=== PATIENT | male | born 2000 | race American Indian/Alaskan Native ===

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

== ENCOUNTER 2024-08-26 15:12 | Emergency (ER) | payer SELFPAY ==
[2024-08-26 16:08] LABS: BASOPHILS PERCENT AUTO 0.1 % (0.3-3.8); EOSINOPHILS ABSOLUTE AUTO 0.1 x10-3/uL (0.0-0.6); EOSINOPHILS PERCENT AUTO 0.8 % (0.1-6.8); HEMATOCRIT 47.3 % (38.3-50.1); HEMOGLOBIN 16.3 g/dL (12.9-17.7); LYMPHOCYTES ABSOLUTE AUTO 0.9 x10-3/uL (0.5-4.5); LYMPHOCYTES PERCENT AUTO 15.7 % (15.8-45.3); MEAN CORPUSCULAR HGB CONC 34.5 g/dL (28.7-35.3); MEAN CORPUSCULAR VOLUME 95.6 fL (80.8-98.7); MEAN PLATELET VOLUME 8.1 fL (6.7-11.0); MONOCYTES ABSOLUTE AUTO 0.3 x10-3/uL (0.0-1.2); MONOCYTES PERCENT AUTO 5.1 % (5.5-15.2); NEUTROPHILS ABSOLUTE AUTO 4.7 x10-3/uL (1.7-6.9); NEUTROPHILS PERCENT AUTO 78.3 % (40.3-71.8); PLATELET COUNT,PLT 243 x10(3)uL (117-477); RED BLOOD CELL COUNT 4.95 x10(6)uL (3.90-5.90); RED CELL DISTRIBUTION WIDTH 13.6 % (12.4-15.0); WHITE BLOOD CELL COUNT,WBC 5.9 x10-3/uL (3.2-10.1)
[2024-08-26 16:15] LABS: BLOOD UREA NITROGEN,BUN 5 mg/dL (7-18); BUN/CREATININE RATIO 5.6 (9-20); CALCIUM 8.6 mg/dL (8.6-10.2); CARBON DIOXIDE,CO2 24 mmol/L (21-32); CHLORIDE,CL 101 mmol/L (100-110); CREATININE 0.9 mg/dL (0.70-1.30); ESTIMATED GFR 122 mL/min (>60); GLUCOSE RANDOM 82 mg/dL (80-116); POTASSIUM,K 4.2 mmol/L (3.5-5.3); SODIUM,NA 140 mmol/L (135-145)
[2024-08-26 16:18] LABS: SALICYLATE 1.8 mg/dL (<2.8)
[2024-08-26 16:19] LABS: ACETAMINOPHEN < 2 ug/mL (<2)
[2024-08-26 16:26] LABS: A/G RATIO 1.1; ALBUMIN 4.4 g/dL (3.5-5.2); ALKALINE PHOSPHATASE 138 IU/L (56-112); BILIRUBIN TOTAL 0.7 mg/dL (0.1-1.3); PROTEIN TOTAL,TP 8.4 g/dL (6.0-8.0)
[2024-08-26 16:28] LABS: ALANINE AMINOTRANSFERASE,ALT 304 U/L (12-36); ASPARTATE AMNIOTRANSFERASE,AST 401 IU/L (5-25); ETHANOL BLOOD MEDICAL 0.34 % (<0.03)
[2024-08-26 16:29] LABS: LACTIC ACID 3.6 mmol/L (0.4-2.0)
[2024-08-26 16:46] LABS: BILIRUBIN,URINE NEGATIVE (NEGATIVE); GLUCOSE,URINE NORMAL (NORMAL); KETONES,URINE 15 mg/dL (NEGATIVE); LEUKOCYTE ESTERASE,URINE NEGATIVE (NEGATIVE); NITRITE,URINE NEGATIVE (NEGATIVE); OCCULT BLOOD,URINE NEGATIVE (NEGATIVE); PROTEIN,URINE 30 mg/dL (NEGATIVE); UROBILINOGEN,URINE NORMAL (NEGATIVE)
[2024-08-26 16:47] LABS: APPEARANCE,URINE CLEAR (CLEAR); COLOR,URINE YELLOW (YELLOW)
[2024-08-26 16:53] LABS: AMPHETAMINES SCREEN, URINE NEGATIVE (NEGATIVE); BARBITURATE SCREEN,URINE NEGATIVE (NEGATIVE); BENZODIAZEPINES SCREEN,URINE NEGATIVE (NEGATIVE); METHADONE SCREEN, URINE NEGATIVE (NEGATIVE); METHAMPHETAMINE SCREEN, URINE NEGATIVE (NEGATIVE); OXYCODONE SCREEN,URINE NEGATIVE (NEGATIVE); THC SCREEN,URINE POSITIVE (NEGATIVE)
[2024-08-26] MEDS: Sodium Chloride 0.9% 1,000 ML IV ONE ×3 (16:53→20:04)
[2024-08-26 16:54] LABS: BUPRENORPHINE SCREEN,URINE NEGATIVE (NEGATIVE)
[2024-08-26 17:18] LABS: BACTERIA,URINE OCCASIONAL (NS); FINE GRANULAR CASTS,URINE OCCASIONAL (NS); MUCUS,URINE FEW (NS); RBC,URINE 0-5 (0-5); SQUAMOUS EPITHELIAL CELLS,UR OCCASIONAL (NS,R,O); WBC,URINE 0-5 (0-5)
[2024-08-26] MEDS: LORazepam 2 MG/ML SDV IVPUSH ONE (20:04)
== END 2024-08-26 21:00 ==
LOC: FB.ED 15:12
DX: F10.239 Alcohol dependence with withdrawal, unspecified (principal); F17.290 Nicotine dependence, other tobacco product, uncomplicated; Y90.9 Presence of alcohol in blood, level not specified
CPT/HCPCS: 36415; 80053; 80143; 80179; 80307; 81001; 83605; 83690; 85025; 96361; 96374; 99284; 99285; J2060; J7030

== ENCOUNTER 2024-09-15 08:12 | Emergency (ER) | payer SELFPAY ==
[2024-09-15] MEDS ORDERED: Sodium Chloride 0.9% 10 ML Syringe FLUSH PRN (08:22)
[2024-09-15] MEDS: Thiamine 200 MG/2 ML MDV IVPUSH STA (08:48)
[2024-09-15] MEDS: Sodium Chloride 0.9% 1,000 ML IV SCH (08:48)
[2024-09-15 08:49] LABS: BASOPHILS PERCENT AUTO 0.5 % (0.3-3.8); EOSINOPHILS PERCENT AUTO 0.4 % (0.1-6.8); HEMATOCRIT 47.7 % (38.3-50.1); HEMOGLOBIN 16.7 g/dL (12.9-17.7); MEAN CORPUSCULAR HEMOGLOBIN 32.1 pg (27.0-33.3); MEAN CORPUSCULAR HGB CONC 35.1 g/dL (28.7-35.3); MEAN CORPUSCULAR VOLUME 91.5 fL (80.8-98.7); MONOCYTES ABSOLUTE AUTO 0.8 x10-3/uL (0.0-1.2); MONOCYTES PERCENT AUTO 8.4 % (5.5-15.2); NEUTROPHILS ABSOLUTE AUTO 6.1 x10-3/uL (1.7-6.9); NEUTROPHILS PERCENT AUTO 68.7 % (40.3-71.8); PLATELET COUNT,PLT 479 x10(3)uL (117-477); RED BLOOD CELL COUNT 5.21 x10(6)uL (3.90-5.90); RED CELL DISTRIBUTION WIDTH 13.5 % (12.4-15.0); WHITE BLOOD CELL COUNT,WBC 8.9 x10-3/uL (3.2-10.1)
[2024-09-15 08:53] LABS: EST CRCL DRUG DOSING (CG) 123.85 mL/min; ESTIMATED GFR 127 mL/min (>60); POTASSIUM,K 3.2 mmol/L (3.5-5.3)
[2024-09-15 09:04] LABS: A/G RATIO 0.9; ALBUMIN 3.9 g/dL (3.5-5.2); BILIRUBIN TOTAL 0.4 mg/dL (0.1-1.3); MAGNESIUM 1.9 mg/dL (1.8-2.5)
[2024-09-15 09:16] LABS: CALCIUM 9.4 mg/dL (8.6-10.2); CARBON DIOXIDE,CO2 26 mmol/L (21-32); CHLORIDE,CL 100 mmol/L (100-110); CREATININE 0.8 mg/dL (0.70-1.30); GLUCOSE RANDOM 101 mg/dL (80-116); SODIUM,NA 143 mmol/L (135-145)
[2024-09-15 09:27] LABS: ALKALINE PHOSPHATASE 137 IU/L (56-112); ASPARTATE AMNIOTRANSFERASE,AST 95 IU/L (5-25); PROTEIN TOTAL,TP 8.4 g/dL (6.0-8.0)
[2024-09-15 09:31] LABS: BLOOD UREA NITROGEN,BUN < 5 mg/dL (7-18); BUN/CREATININE RATIO 6.3 (9-20)
[2024-09-15 09:32] LABS: ALANINE AMINOTRANSFERASE,ALT 151 U/L (12-36)
[2024-09-15 09:33] LABS: AMPHETAMINES SCREEN, URINE NEGATIVE (NEGATIVE); BARBITURATE SCREEN,URINE NEGATIVE (NEGATIVE); BENZODIAZEPINES SCREEN,URINE NEGATIVE (NEGATIVE); BUPRENORPHINE SCREEN,URINE NEGATIVE (NEGATIVE); METHADONE SCREEN, URINE NEGATIVE (NEGATIVE); METHAMPHETAMINE SCREEN, URINE NEGATIVE (NEGATIVE); OXYCODONE SCREEN,URINE NEGATIVE (NEGATIVE); THC SCREEN,URINE NEGATIVE (NEGATIVE)
[2024-09-15] MEDS: Potassium Chloride 20 MEQ Tab.ER PO STA (09:42)
== END 2024-09-15 09:45 | disposition home or self-care (01) ==
LOC: FB.ED 08:12
DX: F10.120 Alcohol abuse with intoxication, uncomplicated (principal); E87.6 Hypokalemia; Z79.899 Other long term (current) drug therapy; Y90.0 Blood alcohol level of less than 20 mg/100 ml
CPT/HCPCS: 71045; 80053; 80307; 83735; 85025; 93005; 93010; 96361; 96374; 99284; 99285; A9270; J3411; J7030

== ENCOUNTER 2024-09-16 21:32 | Emergency (ER) | payer SELFPAY ==
[2024-09-16] MEDS: LORazepam 2 MG/ML SDV IM ONE (22:12)
[2024-09-16 22:18] LABS: BASOPHILS PERCENT AUTO 0.4 % (0.3-3.8); EOSINOPHILS PERCENT AUTO 0.2 % (0.1-6.8); HEMATOCRIT 45.3 % (38.3-50.1); HEMOGLOBIN 15.7 g/dL (12.9-17.7); LYMPHOCYTES PERCENT AUTO 8.5 % (15.8-45.3); MEAN CORPUSCULAR HEMOGLOBIN 32.1 pg (27.0-33.3); MEAN CORPUSCULAR HGB CONC 34.7 g/dL (28.7-35.3); MEAN CORPUSCULAR VOLUME 92.3 fL (80.8-98.7); MEAN PLATELET VOLUME 8.3 fL (6.7-11.0); MONOCYTES ABSOLUTE AUTO 0.7 x10-3/uL (0.0-1.2); MONOCYTES PERCENT AUTO 5.9 % (5.5-15.2); NEUTROPHILS ABSOLUTE AUTO 9.6 x10-3/uL (1.7-6.9); PLATELET COUNT,PLT 382 x10(3)uL (117-477); RED BLOOD CELL COUNT 4.91 x10(6)uL (3.90-5.90); RED CELL DISTRIBUTION WIDTH 13.7 % (12.4-15.0); WHITE BLOOD CELL COUNT,WBC 11.2 x10-3/uL (3.2-10.1)
[2024-09-16 22:22] LABS: CALCIUM 9.5 mg/dL (8.6-10.2); CARBON DIOXIDE,CO2 28 mmol/L (21-32); CHLORIDE,CL 97 mmol/L (100-110); CREATININE 0.9 mg/dL (0.70-1.30); ESTIMATED GFR 122 mL/min (>60); GLUCOSE RANDOM 106 mg/dL (80-116); POTASSIUM,K 3.9 mmol/L (3.5-5.3); SODIUM,NA 138 mmol/L (135-145)
[2024-09-16 22:27] LABS: A/G RATIO 0.9; ALANINE AMINOTRANSFERASE,ALT 142 U/L (12-36); ALBUMIN 3.8 g/dL (3.5-5.2); ALKALINE PHOSPHATASE 124 IU/L (56-112); ASPARTATE AMNIOTRANSFERASE,AST 91 IU/L (5-25); BILIRUBIN TOTAL 0.7 mg/dL (0.1-1.3); PROTEIN TOTAL,TP 7.9 g/dL (6.0-8.0)
[2024-09-16 22:28] LABS: BLOOD UREA NITROGEN,BUN < 5 mg/dL (7-18); BUN/CREATININE RATIO 5.6 (9-20)
[2024-09-16 22:42] LABS: AMPHETAMINES SCREEN, URINE NEGATIVE (NEGATIVE); BARBITURATE SCREEN,URINE NEGATIVE (NEGATIVE); BENZODIAZEPINES SCREEN,URINE NEGATIVE (NEGATIVE); BUPRENORPHINE SCREEN,URINE NEGATIVE (NEGATIVE); METHADONE SCREEN, URINE NEGATIVE (NEGATIVE); METHAMPHETAMINE SCREEN, URINE NEGATIVE (NEGATIVE); OXYCODONE SCREEN,URINE NEGATIVE (NEGATIVE); THC SCREEN,URINE POSITIVE (NEGATIVE)
== END 2024-09-16 23:09 | disposition home or self-care (01) ==
LOC: FB.ED 21:32
DX: F10.10 Alcohol abuse, uncomplicated (principal); F41.9 Anxiety disorder, unspecified; Z79.899 Other long term (current) drug therapy; Y90.9 Presence of alcohol in blood, level not specified
CPT/HCPCS: 36415; 80053; 80307; 84484; 85025; 93005; 93010; 96372; 99284; 99285; J2060

== ENCOUNTER 2024-10-06 16:23 | Emergency (ER) | payer SELFPAY ==
[2024-10-06] MEDS ORDERED: Sodium Chloride 0.9% 10 ML Syringe FLUSH PRN (16:48)
[2024-10-06] MEDS: Sodium Chloride 0.9% 1,000 ML IV ONE (17:08)
[2024-10-06] MEDS: diphenhydrAMINE 50 MG/ML SDV IVPUSH ONE (17:10)
[2024-10-06] MEDS: Prochlorperazine 10 MG/2 ML SDV IVPUSH ONE (17:10)
[2024-10-06 17:15] LABS: BASOPHILS PERCENT AUTO 0.1 % (0.3-3.8); EOSINOPHILS PERCENT AUTO 0.1 % (0.1-6.8); HEMATOCRIT 47.5 % (38.3-50.1); HEMOGLOBIN 16.9 g/dL (12.9-17.7); LYMPHOCYTES ABSOLUTE AUTO 0.5 x10-3/uL (0.5-4.5); LYMPHOCYTES PERCENT AUTO 5.3 % (15.8-45.3); MEAN CORPUSCULAR HEMOGLOBIN 32.3 pg (27.0-33.3); MEAN CORPUSCULAR HGB CONC 35.7 g/dL (28.7-35.3); MEAN CORPUSCULAR VOLUME 90.5 fL (80.8-98.7); MEAN PLATELET VOLUME 10.4 fL (6.7-11.0); MONOCYTES ABSOLUTE AUTO 0.9 x10-3/uL (0.0-1.2); MONOCYTES PERCENT AUTO 10.1 % (5.5-15.2); NEUTROPHILS ABSOLUTE AUTO 7.6 x10-3/uL (1.7-6.9); NEUTROPHILS PERCENT AUTO 84.4 % (40.3-71.8); PLATELET COUNT,PLT 155 x10(3)uL (117-477); RED BLOOD CELL COUNT 5.24 x10(6)uL (3.90-5.90); RED CELL DISTRIBUTION WIDTH 13.9 % (12.4-15.0)
[2024-10-06 17:25] LABS: BILIRUBIN,URINE SMALL (NEGATIVE); GLUCOSE,URINE NORMAL (NORMAL); KETONES,URINE 15 mg/dL (NEGATIVE); LEUKOCYTE ESTERASE,URINE NEGATIVE (NEGATIVE); NITRITE,URINE NEGATIVE (NEGATIVE); OCCULT BLOOD,URINE NEGATIVE (NEGATIVE); PROTEIN,URINE NEGATIVE (NEGATIVE); UROBILINOGEN,URINE NORMAL (NEGATIVE)
[2024-10-06 17:26] LABS: APPEARANCE,URINE SLIGHTLY CLOUDY (CLEAR); COLOR,URINE ORANGE (YELLOW)
[2024-10-06 17:30] LABS: A/G RATIO 1.1; ALANINE AMINOTRANSFERASE,ALT 100 U/L (12-36); ALBUMIN 4.9 g/dL (3.5-5.2); ALKALINE PHOSPHATASE 144 IU/L (56-112); ASPARTATE AMNIOTRANSFERASE,AST 133 IU/L (5-25); BILIRUBIN TOTAL 2.3 mg/dL (0.1-1.3); BLOOD UREA NITROGEN,BUN 77 mg/dL (7-18); BUN/CREATININE RATIO 29.6 (9-20); CALCIUM 9.7 mg/dL (8.6-10.2); CARBON DIOXIDE,CO2 27 mmol/L (21-32); ESTIMATED GFR 34 mL/min (>60); GLUCOSE RANDOM 103 mg/dL (80-116); MAGNESIUM 2.7 mg/dL (1.8-2.5); POTASSIUM,K 3.2 mmol/L (3.5-5.3); PROTEIN TOTAL,TP 9.3 g/dL (6.0-8.0); SODIUM,NA 123 mmol/L (135-145)
[2024-10-06 17:34] LABS: CHLORIDE,CL 79 mmol/L (100-110)
[2024-10-06 17:36] LABS: CREATININE 2.6 mg/dL (0.70-1.30)
[2024-10-06 17:39] LABS: AMPHETAMINES SCREEN, URINE NEGATIVE (NEGATIVE); BARBITURATE SCREEN,URINE NEGATIVE (NEGATIVE); BENZODIAZEPINES SCREEN,URINE NEGATIVE (NEGATIVE); BUPRENORPHINE SCREEN,URINE NEGATIVE (NEGATIVE); METHADONE SCREEN, URINE NEGATIVE (NEGATIVE); METHAMPHETAMINE SCREEN, URINE NEGATIVE (NEGATIVE); OXYCODONE SCREEN,URINE NEGATIVE (NEGATIVE); THC SCREEN,URINE NEGATIVE (NEGATIVE)
[2024-10-06] MEDS: LORazepam 2 MG/ML SDV IVPUSH ONE (18:09)
[2024-10-06] MEDS: Sodium Chloride 0.9% 1,000 ML IV SCH (18:11)
[2024-10-06] MEDS: LORazepam 2 MG/ML SDV ONE (18:18)
[2024-10-06] MEDS: diazePAM 10 MG/2 ML Syringe IVPUSH ONE (18:26)
[2024-10-06 19:05] LABS: INR 1.01 (1.00-1.24); PROTHROMBIN TIME 10.5 sec (9.0-11.1); PTT,PARTIAL THROMBOPLSTIN TIME 24.6 SECONDS (24.4-33.2)
== END 2024-10-06 20:15 ==
LOC: FB.ED 16:23
DX: F10.231 Alcohol dependence with withdrawal delirium (principal); K70.9 Alcoholic liver disease, unspecified; N17.9 Acute kidney failure, unspecified; E87.1 Hypo-osmolality and hyponatremia; E87.6 Hypokalemia; Z79.899 Other long term (current) drug therapy; Y90.0 Blood alcohol level of less than 20 mg/100 ml
CPT/HCPCS: 36415; 80053; 80143; 80307; 81003; 83605; 83735; 85025; 85610; 85730; 96361; 96374; 96375; 99285; J0780; J1200; J2060; J3360; J7030

== ENCOUNTER 2024-11-03 22:08 | Emergency (ER) | payer SELFPAY ==
[2024-11-03] MEDS ORDERED: Sodium Chloride 0.9% 10 ML Syringe FLUSH PRN (22:21)
[2024-11-03] MEDS: Sodium Chloride 0.9% 1,000 ML IV SCH (22:40)
[2024-11-03 22:41] LABS: BASOPHILS PERCENT AUTO 0.5 % (0.3-3.8); EOSINOPHILS PERCENT AUTO 0.2 % (0.1-6.8); HEMATOCRIT 48.4 % (38.3-50.1); HEMOGLOBIN 16.8 g/dL (12.9-17.7); LYMPHOCYTES ABSOLUTE AUTO 1.6 x10-3/uL (0.5-4.5); LYMPHOCYTES PERCENT AUTO 19.3 % (15.8-45.3); MEAN CORPUSCULAR HEMOGLOBIN 30.4 pg (27.0-33.3); MEAN CORPUSCULAR HGB CONC 34.8 g/dL (28.7-35.3); MEAN CORPUSCULAR VOLUME 87.5 fL (80.8-98.7); MEAN PLATELET VOLUME 9.7 fL (6.7-11.0); MONOCYTES ABSOLUTE AUTO 0.6 x10-3/uL (0.0-1.2); MONOCYTES PERCENT AUTO 6.8 % (5.5-15.2); NEUTROPHILS PERCENT AUTO 73.2 % (40.3-71.8); PLATELET COUNT,PLT 155 x10(3)uL (117-477); RED BLOOD CELL COUNT 5.52 x10(6)uL (3.90-5.90); RED CELL DISTRIBUTION WIDTH 13.7 % (12.4-15.0); WHITE BLOOD CELL COUNT,WBC 8.2 x10-3/uL (3.2-10.1)
[2024-11-03] MEDS: Thiamine 200 MG/2 ML MDV IVPUSH ONE (22:47)
[2024-11-03 22:48] LABS: BLOOD UREA NITROGEN,BUN 9 mg/dL (7-18); CARBON DIOXIDE,CO2 27 mmol/L (21-32); CHLORIDE,CL 96 mmol/L (100-110); ESTIMATED GFR 108 mL/min (>60); GLUCOSE RANDOM 109 mg/dL (80-116); POTASSIUM,K 3.1 mmol/L (3.5-5.3); SODIUM,NA 139 mmol/L (135-145)
[2024-11-03 22:59] LABS: A/G RATIO 1.1; ALANINE AMINOTRANSFERASE,ALT 111 U/L (12-36); ALBUMIN 4.4 g/dL (3.5-5.2); ALKALINE PHOSPHATASE 136 IU/L (56-112); BILIRUBIN TOTAL 0.7 mg/dL (0.1-1.3); PROTEIN TOTAL,TP 8.4 g/dL (6.0-8.0); SALICYLATE 1.9 mg/dL (<2.8)
[2024-11-03 23:00] LABS: ASPARTATE AMNIOTRANSFERASE,AST 279 IU/L (5-25)
[2024-11-03 23:03] LABS: ACETAMINOPHEN < 2 ug/mL (<2)
[2024-11-03] MEDS: LORazepam 2 MG/ML SDV IVPUSH PRN (23:27)
[2024-11-04 00:21] LABS: AMPHETAMINES SCREEN, URINE NEGATIVE (NEGATIVE); BARBITURATE SCREEN,URINE NEGATIVE (NEGATIVE); BENZODIAZEPINES SCREEN,URINE NEGATIVE (NEGATIVE); BUPRENORPHINE SCREEN,URINE NEGATIVE (NEGATIVE); METHADONE SCREEN, URINE NEGATIVE (NEGATIVE); METHAMPHETAMINE SCREEN, URINE NEGATIVE (NEGATIVE); OXYCODONE SCREEN,URINE NEGATIVE (NEGATIVE); THC SCREEN,URINE NEGATIVE (NEGATIVE)
[2024-11-04] MEDS: Promethazine 12.5 MG in Sodium Chloride 0.9% 50 ML IV PRN (00:23)
[2024-11-04] MEDS: Potassium Chloride 20 MEQ Tab.ER PO ONE (01:37)
== END 2024-11-04 01:45 ==
LOC: FB.ED 22:08
DX: R78.0 Finding of alcohol in blood (principal); Z79.899 Other long term (current) drug therapy; Y90.0 Blood alcohol level of less than 20 mg/100 ml
CPT/HCPCS: 36415; 80053; 80143; 80179; 80307; 85025; 96361; 96374; 96375; 99285; 99285-25; A9270-GY; J2060; J2550; J3411; J7030

== ENCOUNTER 2024-12-11 22:30 | Emergency (ER) | payer SELFPAY ==
[2024-12-11 22:59] LABS: BASOPHILS ABSOLUTE AUTO 0.0 x10-3/uL (0.0-0.3); BASOPHILS PERCENT AUTO 0.5 % (0.3-3.8); EOSINOPHILS ABSOLUTE AUTO 0.0 x10-3/uL (0.0-0.6); EOSINOPHILS PERCENT AUTO 0.1 % (0.1-6.8); LYMPHOCYTES ABSOLUTE AUTO 1.4 x10-3/uL (0.5-4.5); LYMPHOCYTES PERCENT AUTO 15.4 % (15.8-45.3); MEAN PLATELET VOLUME 8.8 fL (6.7-11.0); MONOCYTES ABSOLUTE AUTO 0.4 x10-3/uL (0.0-1.2); MONOCYTES PERCENT AUTO 4.2 % (5.5-15.2); NEUTROPHILS ABSOLUTE AUTO 7.2 x10-3/uL (1.7-6.9); NEUTROPHILS PERCENT AUTO 79.8 % (40.3-71.8); PLATELET COUNT,PLT 236 x10(3)uL (117-477); RED BLOOD CELL COUNT 5.03 x10(6)uL (3.90-5.90); RED CELL DISTRIBUTION WIDTH 14.7 % (12.4-15.0); WHITE BLOOD CELL COUNT,WBC 9.0 x10-3/uL (3.2-10.1)
[2024-12-11 23:03] LABS: BLOOD UREA NITROGEN,BUN 8 mg/dL (7-18); CARBON DIOXIDE,CO2 24 mmol/L (21-32); CHLORIDE,CL 103 mmol/L (100-110); CREATININE 0.9 mg/dL (0.70-1.30); ESTIMATED GFR 122 mL/min (>60); GLUCOSE RANDOM 151 mg/dL (80-116); POTASSIUM,K 3.1 mmol/L (3.5-5.3); SODIUM,NA 141 mmol/L (135-145)
[2024-12-11 23:15] LABS: A/G RATIO 1.2; ALANINE AMINOTRANSFERASE,ALT 79 U/L (12-36); ASPARTATE AMNIOTRANSFERASE,AST 69 IU/L (5-25); BILIRUBIN TOTAL 0.5 mg/dL (0.1-1.3); PROTEIN TOTAL,TP 7.8 g/dL (6.0-8.0)
[2024-12-11 23:19] LABS: LACTIC ACID 3.2 mmol/L (0.4-2.0)
[2024-12-12 05:13] LABS: LACTIC ACID 4.1 mmol/L (0.4-2.0)
[2024-12-12] MEDS: Potassium Chloride 20 MEQ Tab.ER PO ONE (05:55)
[2024-12-12 10:00] LABS: AMPHETAMINES SCREEN, URINE NEGATIVE (NEGATIVE); BUPRENORPHINE SCREEN,URINE NEGATIVE (NEGATIVE); METHADONE SCREEN, URINE NEGATIVE (NEGATIVE); METHAMPHETAMINE SCREEN, URINE NEGATIVE (NEGATIVE); OXYCODONE SCREEN,URINE NEGATIVE (NEGATIVE)
== END 2024-12-12 10:00 | disposition home or self-care (01) ==
LOC: FB.ED 22:30
DX: F10.120 Alcohol abuse with intoxication, uncomplicated (principal); E87.6 Hypokalemia; Z79.899 Other long term (current) drug therapy; Y90.0 Blood alcohol level of less than 20 mg/100 ml
CPT/HCPCS: 36415; 80053; 80307; 82947; 83605; 85025; 96360; 96361; 99285; A9270; J7030

== ENCOUNTER 2024-12-12 12:56 | Emergency (ER) | payer SELFPAY ==
[2024-12-12] MEDS ORDERED: Sodium Chloride 0.9% 10 ML Syringe FLUSH PRN (13:07)
[2024-12-12 14:32] LABS: BASOPHILS ABSOLUTE AUTO 0.0 x10-3/uL (0.0-0.3); BASOPHILS PERCENT AUTO 0.4 % (0.3-3.8); EOSINOPHILS ABSOLUTE AUTO 0.0 x10-3/uL (0.0-0.6); EOSINOPHILS PERCENT AUTO 0.1 % (0.1-6.8); LYMPHOCYTES ABSOLUTE AUTO 1.8 x10-3/uL (0.5-4.5); LYMPHOCYTES PERCENT AUTO 20.6 % (15.8-45.3); MEAN PLATELET VOLUME 8.6 fL (6.7-11.0); MONOCYTES ABSOLUTE AUTO 0.5 x10-3/uL (0.0-1.2); MONOCYTES PERCENT AUTO 6.1 % (5.5-15.2); NEUTROPHILS ABSOLUTE AUTO 6.3 x10-3/uL (1.7-6.9); NEUTROPHILS PERCENT AUTO 72.8 % (40.3-71.8); PLATELET COUNT,PLT 225 x10(3)uL (117-477); RED BLOOD CELL COUNT 4.86 x10(6)uL (3.90-5.90); RED CELL DISTRIBUTION WIDTH 14.4 % (12.4-15.0); WHITE BLOOD CELL COUNT,WBC 8.6 x10-3/uL (3.2-10.1)
[2024-12-12 14:36] LABS: BLOOD UREA NITROGEN,BUN 6 mg/dL (7-18); CARBON DIOXIDE,CO2 25 mmol/L (21-32); CHLORIDE,CL 107 mmol/L (100-110); CREATININE 0.9 mg/dL (0.70-1.30); ESTIMATED GFR 122 mL/min (>60); GLUCOSE RANDOM 94 mg/dL (80-116); POTASSIUM,K 3.4 mmol/L (3.5-5.3); SODIUM,NA 146 mmol/L (135-145)
[2024-12-12 14:42] LABS: A/G RATIO 1.2; ALANINE AMINOTRANSFERASE,ALT 68 U/L (12-36); ASPARTATE AMNIOTRANSFERASE,AST 56 IU/L (5-25); BILIRUBIN TOTAL 0.6 mg/dL (0.1-1.3); PROTEIN TOTAL,TP 7.6 g/dL (6.0-8.0)
[2024-12-12] MEDS: Potassium Chloride 20 MEQ Tab.ER PO ONE (18:04)
== END 2024-12-12 18:42 ==
LOC: FB.ED 12:56
DX: S00.83XA Contusion of other part of head, initial encounter (principal); F10.129 Alcohol abuse with intoxication, unspecified; E87.6 Hypokalemia; Z79.899 Other long term (current) drug therapy; Y90.8 Blood alcohol level of 240 mg/100 ml or more; V18.2XXA Unspecified pedal cyclist injured in noncollision transport accident in nontraffic accident, initial encounter
CPT/HCPCS: 70450; 80053; 80307; 84443; 85025; 86140; 96360; 96361; 99285; A9270; J7030

== ENCOUNTER 2025-01-01 04:35 | Emergency (ER) | payer SELFPAY ==
[2025-01-01 05:08] LABS: BASOPHILS ABSOLUTE AUTO 0.1 x10-3/uL (0.0-0.3); BASOPHILS PERCENT AUTO 0.7 % (0.3-3.8); EOSINOPHILS ABSOLUTE AUTO 0.0 x10-3/uL (0.0-0.6); EOSINOPHILS PERCENT AUTO 0.1 % (0.1-6.8); LYMPHOCYTES ABSOLUTE AUTO 1.2 x10-3/uL (0.5-4.5); LYMPHOCYTES PERCENT AUTO 15.7 % (15.8-45.3); MEAN PLATELET VOLUME 8.8 fL (6.7-11.0); MONOCYTES ABSOLUTE AUTO 0.6 x10-3/uL (0.0-1.2); MONOCYTES PERCENT AUTO 7.5 % (5.5-15.2); NEUTROPHILS ABSOLUTE AUTO 5.7 x10-3/uL (1.7-6.9); NEUTROPHILS PERCENT AUTO 76.0 % (40.3-71.8); PLATELET COUNT,PLT 308 x10(3)uL (117-477); RED BLOOD CELL COUNT 4.78 x10(6)uL (3.90-5.90); RED CELL DISTRIBUTION WIDTH 15.0 % (12.4-15.0); WHITE BLOOD CELL COUNT,WBC 7.5 x10-3/uL (3.2-10.1)
[2025-01-01] MEDS: Ondansetron 4 MG/2 ML SDV IVPUSH ONE (05:13)
[2025-01-01] MEDS: Sodium Chloride 0.9% 10 ML Syringe FLUSH PRN (05:13)
[2025-01-01 05:23] LABS: A/G RATIO 1.3; ALANINE AMINOTRANSFERASE,ALT 33 U/L (12-36); ASPARTATE AMNIOTRANSFERASE,AST 35 IU/L (5-25); BILIRUBIN TOTAL 3.1 mg/dL (0.1-1.3); BLOOD UREA NITROGEN,BUN 14 mg/dL (7-18); CARBON DIOXIDE,CO2 18 mmol/L (21-32); CHLORIDE,CL 93 mmol/L (100-110); CREATININE 1.5 mg/dL (0.70-1.30); EST CRCL DRUG DOSING (CG) 80.18 mL/min; ESTIMATED GFR 66 mL/min (>60); GLUCOSE RANDOM 90 mg/dL (80-116); PROTEIN TOTAL,TP 7.9 g/dL (6.0-8.0); SODIUM,NA 137 mmol/L (135-145)
[2025-01-01 05:41] LABS: POTASSIUM,K 2.5 mmol/L (3.5-5.3)
[2025-01-01] MEDS: LORazepam 2 MG/ML SDV IVPUSH ONE (06:02)
[2025-01-01] MEDS: Magnesium Sulfate 2 GM/50 mL 2 GM in Premix Bag 1 BAG IV ONE (06:03)
[2025-01-01] MEDS: Potassium Chloride 20 MEQ in Premix Bag 1 BAG IV ONE (06:07)
[2025-01-01 06:38] LABS: GLUCOSE,URINE NORMAL (NORMAL); OCCULT BLOOD,URINE NEGATIVE (NEGATIVE)
[2025-01-01 06:47] LABS: APPEARANCE,URINE CLEAR (CLEAR); SQUAMOUS EPITHELIAL CELLS,UR FEW (NS,R,O)
[2025-01-01 06:52] LABS: AMPHETAMINES SCREEN, URINE NEGATIVE (NEGATIVE); BUPRENORPHINE SCREEN,URINE NEGATIVE (NEGATIVE); METHADONE SCREEN, URINE NEGATIVE (NEGATIVE); METHAMPHETAMINE SCREEN, URINE NEGATIVE (NEGATIVE); OXYCODONE SCREEN,URINE NEGATIVE (NEGATIVE)
[2025-01-01] MEDS: Lactated Ringers 1,000 ML IV ONE (07:05)
[2025-01-01] MEDS: Potassium Chloride 20 MEQ Tab.ER PO ONE (07:18)
[2025-01-01 09:02] LABS: POTASSIUM,K 3.6 mmol/L (3.5-5.3)
== END 2025-01-01 10:30 | disposition home or self-care (01) ==
LOC: FB.ED 04:35
DX: F10.239 Alcohol dependence with withdrawal, unspecified (principal); E87.6 Hypokalemia; E83.42 Hypomagnesemia; E86.0 Dehydration; E78.00 Pure hypercholesterolemia, unspecified; Z79.899 Other long term (current) drug therapy; Z87.891 Personal history of nicotine dependence; Y90.0 Blood alcohol level of less than 20 mg/100 ml
CPT/HCPCS: 36415; 80053; 80307; 81001; 83605; 83690; 83735; 84132; 85025; 96361; 96365; 96367; 96375; 99285; A9270; J2060; J2405; J3475; J3480; J7030; J7120

== ENCOUNTER 2025-02-01 17:08 | Emergency (ER) | payer SELFPAY ==
[2025-02-01 17:39] LABS: MEAN PLATELET VOLUME 8.9 fL (6.7-11.0); PLATELET COUNT,PLT 216 x10(3)uL (117-477); RED BLOOD CELL COUNT 4.88 x10(6)uL (3.90-5.90); RED CELL DISTRIBUTION WIDTH 14.7 % (12.4-15.0); WHITE BLOOD CELL COUNT,WBC 11.7 x10-3/uL (3.2-10.1)
[2025-02-01 17:43] LABS: BLOOD UREA NITROGEN,BUN 20 mg/dL (7-18); CARBON DIOXIDE,CO2 17 mmol/L (21-32); CHLORIDE,CL 97 mmol/L (100-110); CREATININE 1.1 mg/dL (0.70-1.30); ESTIMATED GFR 96 mL/min (>60); GLUCOSE RANDOM 80 mg/dL (80-116); POTASSIUM,K 3.9 mmol/L (3.5-5.3); SODIUM,NA 134 mmol/L (135-145)
[2025-02-01 17:45] LABS: INR 0.98 (1.00-1.24)
[2025-02-01 17:48] LABS: A/G RATIO 1.2; ALANINE AMINOTRANSFERASE,ALT 105 U/L (12-36); ASPARTATE AMNIOTRANSFERASE,AST 94 IU/L (5-25); BILIRUBIN TOTAL 0.7 mg/dL (0.1-1.3); PROTEIN TOTAL,TP 7.5 g/dL (6.0-8.0)
[2025-02-01 17:54] LABS: LYMPHOCYTES PERCENT MAN 8 % (13-37); MONOCYTES PERCENT MAN 1 % (4-12); SEG NEUTROPHILS PERCENT MAN 91 % (46-82)
[2025-02-01 18:35] LABS: AMPHETAMINES SCREEN, URINE NEGATIVE (NEGATIVE); METHADONE SCREEN, URINE NEGATIVE (NEGATIVE); METHAMPHETAMINE SCREEN, URINE NEGATIVE (NEGATIVE); OXYCODONE SCREEN,URINE NEGATIVE (NEGATIVE)
[2025-02-01 18:36] LABS: BUPRENORPHINE SCREEN,URINE NEGATIVE (NEGATIVE)
== END 2025-02-01 18:55 | disposition home or self-care (01) ==
LOC: FB.ED 17:08
DX: F10.939 Alcohol use, unspecified with withdrawal, unspecified (principal); Z79.899 Other long term (current) drug therapy; Y90.0 Blood alcohol level of less than 20 mg/100 ml
CPT/HCPCS: 36415; 80053; 80307; 83690; 83735; 85025; 85610; 96360; 99284; 99285; J7030

== ENCOUNTER 2025-04-13 18:31 | Emergency (ER) | payer SELFPAY ==
[2025-04-13] MEDS ORDERED: Sodium Chloride 0.9% 10 ML Syringe FLUSH PRN (18:43)
[2025-04-13] MEDS: LORazepam 2 MG/ML SDV IVPUSH ONE (19:02)
[2025-04-13 19:04] LABS: BASOPHILS ABSOLUTE AUTO 0.1 x10-3/uL (0.0-0.3); BASOPHILS PERCENT AUTO 0.5 % (0.3-3.8); EOSINOPHILS ABSOLUTE AUTO 0.0 x10-3/uL (0.0-0.6); EOSINOPHILS PERCENT AUTO 0.0 % (0.1-6.8); LYMPHOCYTES ABSOLUTE AUTO 1.5 x10-3/uL (0.5-4.5); LYMPHOCYTES PERCENT AUTO 15.4 % (15.8-45.3); MEAN PLATELET VOLUME 8.3 fL (6.7-11.0); MONOCYTES ABSOLUTE AUTO 0.3 x10-3/uL (0.0-1.2); MONOCYTES PERCENT AUTO 3.1 % (5.5-15.2); NEUTROPHILS ABSOLUTE AUTO 8.0 x10-3/uL (1.7-6.9); NEUTROPHILS PERCENT AUTO 81.0 % (40.3-71.8); PLATELET COUNT,PLT 300 x10(3)uL (117-477); RED BLOOD CELL COUNT 5.44 x10(6)uL (3.90-5.90); RED CELL DISTRIBUTION WIDTH 14.2 % (12.4-15.0); WHITE BLOOD CELL COUNT,WBC 9.9 x10-3/uL (3.2-10.1)
[2025-04-13 19:05] LABS: BLOOD UREA NITROGEN,BUN 13 mg/dL (7-18); CARBON DIOXIDE,CO2 23 mmol/L (21-32); CHLORIDE,CL 100 mmol/L (100-110); CREATININE 1.1 mg/dL (0.70-1.30); ESTIMATED GFR 96 mL/min (>60); GLUCOSE RANDOM 93 mg/dL (80-116); POTASSIUM,K 3.8 mmol/L (3.5-5.3); SODIUM,NA 141 mmol/L (135-145)
[2025-04-13 19:11] LABS: A/G RATIO 1.2; ALANINE AMINOTRANSFERASE,ALT 28 U/L (12-36); ASPARTATE AMNIOTRANSFERASE,AST 26 IU/L (5-25); BILIRUBIN TOTAL 0.9 mg/dL (0.1-1.3); PROTEIN TOTAL,TP 8.5 g/dL (6.0-8.0)
== END 2025-04-13 20:00 | disposition home or self-care (01) ==
LOC: FB.ED 18:31
DX: F41.9 Anxiety disorder, unspecified (principal); Z79.899 Other long term (current) drug therapy
CPT/HCPCS: 80053; 80307; 85025; 96361; 96374; 99285; J2060; J7030

== ENCOUNTER 2025-04-16 02:07 | Emergency (ER) | payer SELFPAY ==
[2025-04-16] MEDS ORDERED: Sodium Chloride 0.9% 10 ML Syringe FLUSH PRN (02:47)
[2025-04-16 03:01] LABS: BASOPHILS ABSOLUTE AUTO 0.0 x10-3/uL (0.0-0.3); BASOPHILS PERCENT AUTO 0.4 % (0.3-3.8); EOSINOPHILS ABSOLUTE AUTO 0.0 x10-3/uL (0.0-0.6); EOSINOPHILS PERCENT AUTO 0.4 % (0.1-6.8); LYMPHOCYTES ABSOLUTE AUTO 4.3 x10-3/uL (0.5-4.5); LYMPHOCYTES PERCENT AUTO 46.6 % (15.8-45.3); MEAN PLATELET VOLUME 8.5 fL (6.7-11.0); MONOCYTES ABSOLUTE AUTO 0.7 x10-3/uL (0.0-1.2); MONOCYTES PERCENT AUTO 8.1 % (5.5-15.2); NEUTROPHILS ABSOLUTE AUTO 4.1 x10-3/uL (1.7-6.9); NEUTROPHILS PERCENT AUTO 44.5 % (40.3-71.8); PLATELET COUNT,PLT 282 x10(3)uL (117-477); RED BLOOD CELL COUNT 5.27 x10(6)uL (3.90-5.90); RED CELL DISTRIBUTION WIDTH 13.8 % (12.4-15.0); WHITE BLOOD CELL COUNT,WBC 9.2 x10-3/uL (3.2-10.1)
[2025-04-16 03:11] LABS: BLOOD UREA NITROGEN,BUN 8 mg/dL (7-18); CARBON DIOXIDE,CO2 23 mmol/L (21-32); CHLORIDE,CL 103 mmol/L (100-110); CREATININE 1.0 mg/dL (0.70-1.30); EST CRCL DRUG DOSING (CG) 120.27 mL/min; ESTIMATED GFR 107 mL/min (>60); GLUCOSE RANDOM 103 mg/dL (80-116); POTASSIUM,K 3.0 mmol/L (3.5-5.3); SODIUM,NA 142 mmol/L (135-145)
[2025-04-16] MEDS: Thiamine 200 MG/2 ML MDV IVPUSH ONE (03:12)
[2025-04-16 03:17] LABS: A/G RATIO 1.2; ALANINE AMINOTRANSFERASE,ALT 36 U/L (12-36); ASPARTATE AMNIOTRANSFERASE,AST 58 IU/L (5-25); BILIRUBIN TOTAL 0.5 mg/dL (0.1-1.3); PROTEIN TOTAL,TP 8.2 g/dL (6.0-8.0)
[2025-04-16 03:21] LABS: ETHANOL BLOOD MEDICAL 0.44 % (<0.03)
[2025-04-16 03:31] LABS: AMPHETAMINES SCREEN, URINE NEGATIVE (NEGATIVE); METHADONE SCREEN, URINE NEGATIVE (NEGATIVE); METHAMPHETAMINE SCREEN, URINE NEGATIVE (NEGATIVE); OXYCODONE SCREEN,URINE NEGATIVE (NEGATIVE)
[2025-04-16 03:32] LABS: BUPRENORPHINE SCREEN,URINE NEGATIVE (NEGATIVE)
[2025-04-16] MEDS: Potassium Chloride 20 MEQ Tab.ER PO ONE (03:39)
[2025-04-16] MEDS: Prochlorperazine 10 MG/2 ML SDV IVPUSH ONE (03:40)
[2025-04-17 20:42] LABS: THYROXINE FREE 2.0 ng/dL (0.9-1.7)
== END 2025-04-16 13:19 | disposition home or self-care (01) ==
LOC: FB.ED 02:07 → SUPCPDRO 02:07 → FB.ED 13:19
DX: F10.120 Alcohol abuse with intoxication, uncomplicated (principal); E78.00 Pure hypercholesterolemia, unspecified; Y90.9 Presence of alcohol in blood, level not specified
CPT/HCPCS: 70450; 80053; 80307; 83690; 83735; 84439; 84443; 85025; 96361; 96372; 96374; 96375; 99284; A9270; J0780; J2359; J3411; J7030

== ENCOUNTER 2025-04-19 22:27 | Emergency (ER) | payer SELFPAY ==
[2025-04-19 22:59] LABS: BASOPHILS ABSOLUTE AUTO 0.0 x10-3/uL (0.0-0.3); BASOPHILS PERCENT AUTO 0.4 % (0.3-3.8); EOSINOPHILS ABSOLUTE AUTO 0.0 x10-3/uL (0.0-0.6); EOSINOPHILS PERCENT AUTO 0.1 % (0.1-6.8); LYMPHOCYTES ABSOLUTE AUTO 2.6 x10-3/uL (0.5-4.5); LYMPHOCYTES PERCENT AUTO 27.5 % (15.8-45.3); MEAN PLATELET VOLUME 8.0 fL (6.7-11.0); MONOCYTES ABSOLUTE AUTO 0.6 x10-3/uL (0.0-1.2); MONOCYTES PERCENT AUTO 6.3 % (5.5-15.2); NEUTROPHILS ABSOLUTE AUTO 6.3 x10-3/uL (1.7-6.9); NEUTROPHILS PERCENT AUTO 65.7 % (40.3-71.8); PLATELET COUNT,PLT 261 x10(3)uL (117-477); RED BLOOD CELL COUNT 5.50 x10(6)uL (3.90-5.90); RED CELL DISTRIBUTION WIDTH 14.2 % (12.4-15.0); WHITE BLOOD CELL COUNT,WBC 9.6 x10-3/uL (3.2-10.1)
[2025-04-19 23:03] LABS: BLOOD UREA NITROGEN,BUN 9 mg/dL (7-18); CARBON DIOXIDE,CO2 23 mmol/L (21-32); CHLORIDE,CL 104 mmol/L (100-110); CREATININE 1.1 mg/dL (0.70-1.30); EST CRCL DRUG DOSING (CG) 109.34 mL/min; ESTIMATED GFR 96 mL/min (>60); GLUCOSE RANDOM 114 mg/dL (80-116); POTASSIUM,K 3.1 mmol/L (3.5-5.3); SODIUM,NA 143 mmol/L (135-145)
[2025-04-19 23:08] LABS: A/G RATIO 1.3; BILIRUBIN TOTAL 0.7 mg/dL (0.1-1.3); PROTEIN TOTAL,TP 8.4 g/dL (6.0-8.0)
[2025-04-19 23:09] LABS: ALANINE AMINOTRANSFERASE,ALT 60 U/L (12-36); ASPARTATE AMNIOTRANSFERASE,AST 84 IU/L (5-25)
[2025-04-19 23:18] LABS: LACTIC ACID 3.0 mmol/L (0.4-2.0)
== END 2025-04-20 01:08 | disposition home or self-care (01) ==
LOC: FB.ED 22:27
DX: F10.920 Alcohol use, unspecified with intoxication, uncomplicated (principal); F17.290 Nicotine dependence, other tobacco product, uncomplicated; Y90.0 Blood alcohol level of less than 20 mg/100 ml; Z79.899 Other long term (current) drug therapy
CPT/HCPCS: 36415; 80053; 80307; 83605; 85025; 96360; 96361; 99284; J7030

== ENCOUNTER 2025-05-22 22:05 | Emergency (ER) | payer MEDICAID ==
[2025-05-22 22:57] LABS: BASOPHILS ABSOLUTE AUTO 0.0 x10-3/uL (0.0-0.3); BASOPHILS PERCENT AUTO 0.6 % (0.3-3.8); EOSINOPHILS ABSOLUTE AUTO 0.0 x10-3/uL (0.0-0.6); EOSINOPHILS PERCENT AUTO 0.1 % (0.1-6.8); LYMPHOCYTES ABSOLUTE AUTO 1.9 x10-3/uL (0.5-4.5); LYMPHOCYTES PERCENT AUTO 23.8 % (15.8-45.3); MEAN PLATELET VOLUME 8.2 fL (6.7-11.0); MONOCYTES ABSOLUTE AUTO 0.4 x10-3/uL (0.0-1.2); MONOCYTES PERCENT AUTO 5.1 % (5.5-15.2); NEUTROPHILS ABSOLUTE AUTO 5.6 x10-3/uL (1.7-6.9); NEUTROPHILS PERCENT AUTO 70.4 % (40.3-71.8); PLATELET COUNT,PLT 246 x10(3)uL (117-477); RED BLOOD CELL COUNT 5.26 x10(6)uL (3.90-5.90); RED CELL DISTRIBUTION WIDTH 14.8 % (12.4-15.0); WHITE BLOOD CELL COUNT,WBC 8.0 x10-3/uL (3.2-10.1)
[2025-05-22 23:03] LABS: BLOOD UREA NITROGEN,BUN 10 mg/dL (7-18); CARBON DIOXIDE,CO2 25 mmol/L (21-32); CHLORIDE,CL 106 mmol/L (100-110); CREATININE 1.0 mg/dL (0.70-1.30); EST CRCL DRUG DOSING (CG) 120.27 mL/min; ESTIMATED GFR 107 mL/min (>60); GLUCOSE RANDOM 96 mg/dL (80-116); POTASSIUM,K 3.3 mmol/L (3.5-5.3); SODIUM,NA 146 mmol/L (135-145)
[2025-05-22 23:09] LABS: A/G RATIO 1.3; ALANINE AMINOTRANSFERASE,ALT 122 U/L (12-36); ASPARTATE AMNIOTRANSFERASE,AST 68 IU/L (5-25); BILIRUBIN TOTAL 0.5 mg/dL (0.1-1.3); PROTEIN TOTAL,TP 7.6 g/dL (6.0-8.0)
[2025-05-22 23:19] LABS: LACTIC ACID 3.3 mmol/L (0.4-2.0)
== END 2025-05-22 23:05 | disposition left against medical advice (07) ==
LOC: FB.ED 22:05 → SUPCPDRO 22:05 → FB.ED 23:05
DX: F10.120 Alcohol abuse with intoxication, uncomplicated (principal)
CPT/HCPCS: 36415; 80053; 80307; 83605; 85025; 99284; J7030